=== PATIENT | female | born 1990 | race Caucasian/White ===

== ENCOUNTER 2017-09-04 08:11 | Outpatient (CLI) | payer OTHER ==
[2017-09-04 10:51] LABS: ALANINE AMINOTRANSFERASE 25 U/L (12-78); ALBUMIN 3.9 G/DL (3.4-5.0); ALBUMIN/GLOBULIN RATIO 1.1 (1.1-1.5); ALKALINE PHOSPHATASE 78 IU/L (46-116); ANION GAP 8 (8-16); ASPARTATE AMINO TRANSFERASE 15 U/L (10-37); BILIRUBIN,TOTAL 0.2 MG/DL (0.1-1.0); BLOOD UREA NITROGEN 9 MG/DL (7-18); BUN/CREATININE RATIO 11.8 (6.6-38.0); CALCIUM 8.8 MG/DL (8.5-10.1); CHLORIDE 106 MMOL/L (99-107); CREATININE 0.76 MG/DL (0.40-0.90); GLUCOSE 87 MG/DL (70-104); POTASSIUM 4.1 MMOL/L (3.5-5.1); SODIUM 143 MMOL/L (135-145); TOTAL CARBON DIOXIDE 28.7 MMOL/L (24-32); TOTAL PROTEIN 7.4 G/DL (6.4-8.2); eGFR > 90 ML/MIN
[2017-09-05 08:18] LABS: FSH, SERUM 10.5 mIU/mL (.); LUTEINIZING HORMONE 9.2 mIU/mL (.)
[2017-09-06 17:11] LABS: TESTOSTERONE, FREE, DIRECT 4.6 pg/mL (0.0-4.2)
== END 2017-09-04 23:59 | disposition home or self-care (01) ==
LOC: LAB 08:11
PROVIDERS: ATTEND Nurse Practitioner Family
DX: L65.9 Nonscarring hair loss, unspecified (principal); R53.83 Other fatigue
CPT/HCPCS: 36415; 80053; 82670; 83001; 83002; 84402; 84403; 84439; 84443

== ENCOUNTER 2017-09-25 08:13 | Emergency (ER) | payer OTHER ==
[~2017-09-25] VITALS: Ht 170.2 cm; Wt 108.0 kg
[2017-09-25 08:55] VITALS: BP 138/73
[2017-09-25] MEDS ORDERED: LIDOcaine 5% patch TP ONE (09:15)
[2017-09-25] MEDS ORDERED: CYCL-1 PO (09:26)
[2017-09-25] MEDS ORDERED: IBUP-1984 PO (09:26)
== END 2017-09-25 10:19 | disposition home or self-care (01) ==
LOC: ER 08:13
DX: M43.6 Torticollis (principal); Z79.899 Other long term (current) drug therapy
CPT/HCPCS: 99283

== ENCOUNTER 2017-09-27 12:25 | Outpatient (CLI) | payer OTHER ==
[~2017-09-27 12:25] MED LIST: CYCL-1 PO; IBUP-1984 PO
== END 2017-09-27 23:59 | disposition home or self-care (01) ==
LOC: LAB 12:25
PROVIDERS: ATTEND Nurse Practitioner Family
DX: R53.83 Other fatigue (principal)
CPT/HCPCS: 36415; 84481

== ENCOUNTER 2018-04-24 14:28 | Outpatient (CLI) | payer OTHER ==
[~2018-04-24 14:28] MED LIST changes: -IBUP-1984 PO
[2018-04-24 16:01] LABS: BASOPHILS % (AUTO) 0.5 % (0-1); EOSINOPHILS # (AUTO) 0.2 X10'3 (0-0.9); HEMATOCRIT 46.3 % (35.0-45.0); HEMOGLOBIN 15.6 g/dl (12.0-16.0); LYMPHOCYTES # (AUTO) 1.8 X10'3 (1.1-4.8); MEAN CORPUSCULAR HEMOGLOBIN 30.7 PG (27.0-31.0); MEAN CORPUSCULAR HGB CONC 33.7 % (33.0-36.5); MEAN CORPUSCULAR VOLUME 91.3 FL (78-98); MEAN PLATELET VOLUME 7.9 FL (7.4-10.4); MONOCYTES # (AUTO) 0.4 X10'3 (0-0.9); MONOCYTES % (AUTO) 4.5 % (2-12); NEUTROPHILS # (AUTO) 5.7 X10'3 (1.8-7.7); PLATELET COUNT 308 X10'3 (140-440); RED BLOOD COUNT 5.07 X10'6 (4.20-5.60); RED CELL DISTRIBUTION WIDTH 12.9 % (11.5-14.5); WHITE BLOOD COUNT 8.2 X10'3 (4.5-11.0)
[2018-04-24 16:24] LABS: ALANINE AMINOTRANSFERASE 21 U/L (12-78); ALBUMIN/GLOBULIN RATIO 1.2 (1.1-1.5); ALKALINE PHOSPHATASE 65 IU/L (46-116); ANION GAP 10 (8-16); ASPARTATE AMINO TRANSFERASE 15 U/L (10-37); BILIRUBIN,TOTAL 0.2 MG/DL (0.1-1.0); BLOOD UREA NITROGEN 13 MG/DL (7-18); BUN/CREATININE RATIO 15.1 (6.6-38.0); CALCIUM 9.2 MG/DL (8.5-10.1); CHLORIDE 102 MMOL/L (99-107); CHOL/HDL RATIO 3.7 (0.00-4.99); CHOLESTEROL 138 MG/DL (0-200); CREATININE 0.86 MG/DL (0.40-0.90); GLUCOSE 87 MG/DL (70-104); HDL CHOLESTEROL 37 MG/DL (35-60); LDL CHOLESTEROL 84 MG/DL (50-100); SODIUM 140 MMOL/L (135-145); TOTAL PROTEIN 7.3 G/DL (6.4-8.2); TRIGLYCERIDES 102 MG/DL (20-135); eGFR 79 ML/MIN
[2018-04-25 15:35] LABS: CLARITY,URINE CLEAR (Clear); COLOR,URINE YELLOW (Yellow); GLUCOSE, URINE NEGATIVE (Neg); KETONES,URINE NEGATIVE (Neg); LEUKOCYTE ESTERASE ,URINE NEGATIVE (Neg); NITRITES, URINE NEGATIVE (Neg); OCCULT BLOOD,URINE NEGATIVE (Neg); PH,URINE 6.5 (4.8-8.0); PROTEIN,URINE NEGATIVE (Neg); UROBILINOGEN,URINE 0.2 E.U/dL (0.2-1.0)
[2018-04-25 15:40] LABS: UA COLLECTION TYPE CLN CATCH MIDSTREAM
== END 2018-04-24 23:59 | disposition home or self-care (01) ==
LOC: LAB 14:28
PROVIDERS: ATTEND Family Medicine
DX: F32.9 Major depressive disorder, single episode, unspecified (principal); L65.9 Nonscarring hair loss, unspecified
CPT/HCPCS: 36415; 80053; 80061; 81003; 84439; 84443; 85025

== ENCOUNTER 2021-11-03 14:12 | Outpatient (CLI) | payer BC ==
[2021-11-04] MEDS ORDERED: AMOX-117 PO (16:55)
[2021-11-04] MEDS ORDERED: METH4TAB3 PO (16:56)
[2021-11-05 12:21] LABS: EBV AB VCA, IGM >160.0 U/mL (0.0-35.9); EBV NUCLEAR ANTIGEN AB, IGG <18.0 U/mL (0.0-17.9)
== END 2021-11-03 23:59 | disposition home or self-care (01) ==
LOC: LAB 14:12
PROVIDERS: ATTEND Physician Assistant
DX: J02.9 Acute pharyngitis, unspecified (principal)
CPT/HCPCS: 36415; 86663; 86664; 86665; 87081; 87880

== ENCOUNTER 2021-11-04 12:27 | Emergency (ER) | payer BC ==
[~2021-11-04] VITALS: Ht 170.2 cm; Wt 93.2 kg
[2021-11-04 13:20] VITALS: BP 111/82
[2021-11-04] MEDS ORDERED: AMOX-117 PO (16:55)
[2021-11-04] MEDS ORDERED: METH4TAB3 PO (16:56)
== END 2021-11-04 17:07 | disposition home or self-care (01) ==
LOC: ER 12:28 → EEVIPCON 12:28 → ER 17:07
DX: B27.90 Infectious mononucleosis, unspecified without complication (principal); J02.0 Streptococcal pharyngitis; R42 Dizziness and giddiness; Z79.2 Long term (current) use of antibiotics; Z79.899 Other long term (current) drug therapy
CPT/HCPCS: 99283

== ENCOUNTER 2022-10-14 16:31 | Emergency (ER) | payer SELFPAY ==
[~2022-10-14] VITALS: Ht 172.7 cm; Wt 93.0 kg
[~2022-10-14 16:31] MED LIST changes: +METH4TAB3 PO
[2022-10-14 16:53] VITALS: BP 118/77
[2022-10-14] MEDS ORDERED: ibuprofen tablet 400 MG TABLET PO ONE (19:20)
== END 2022-10-14 19:29 | disposition home or self-care (01) ==
LOC: ER 16:31
DX: S60.222A Contusion of left hand, initial encounter (principal); Z79.899 Other long term (current) drug therapy; W22.12XA Striking against or struck by front passenger side automobile airbag, initial encounter; Y93.89 Activity, other specified; Y92.89 Other specified places as the place of occurrence of the external cause; Y99.8 Other external cause status
CPT/HCPCS: 73130; 99283; A6449